=== PATIENT | male | born 1980 | race Two or more races ===

== ENCOUNTER 2019-03-09 08:07 | Day surgery (SDC) | payer OTHER ==
[2019-03-09] VITALS (12 sets, daily range): BP systolic 109–162; BP diastolic 76–107
[~2019-03-09] VITALS: Ht 167.6 cm; Wt 76.2 kg
[~2019-03-09 08:07] MED LIST: ceFAZolin sod 1gm in D5W 55ml IVPB ONE; celeBREX 200mg Cap **SURGERY PATIENTS ONLY ORAL ONE; oxyCONTIN 20mg tab ORAL ONE
[2019-03-09] MEDS ORDERED: oxyCONTIN 20mg tab ORAL ONE (10:11)
[2019-03-09] MEDS ORDERED: celeBREX 200mg Cap **SURGERY PATIENTS ONLY ORAL ONE (10:11)
[2019-03-09] MEDS ORDERED: fentaNYL 100 mcg/2 mL IV ONE (11:19)
[2019-03-09] MEDS ORDERED: Propofol 200mg/20ml IV ONE (11:20)
[2019-03-09] MEDS ORDERED: Lidocaine 1% MPF 10mg/ml 5ml ONE ×2 (11:20→11:31)
[2019-03-09] MEDS ORDERED: Midazolam 2mg/2ml Inj ONE (11:20)
[2019-03-09] MEDS ORDERED: Ketorolac 30mg Inj ONE ×2 (11:20→12:12)
[2019-03-09] MEDS ORDERED: Ropivacaine 5mg/ml Vial 30ml INJ ONE (11:32)
--- NOTE | 2019-03-09 11:52 | Operative Note - PDOC ---
Operative Note Operative Note Pre-op Diagnosis: right shoulder labral tear, impingement Procedure: see op report Post-op Diagnosis: same as pre-op plus Operative Findings: consistent w/pre-op dx studies Anesthesia: regional Specimen: none Complications: none Condition: stable Estimated Blood Loss: none Implant(s) used?: Yes Dominic Nolan MD Mar 09, 2019 11:52
--- NOTE | 2019-03-09 11:52 | Pre-Procedure Note/Attestation ---
Pre-Procedure Note/Attestation Complete Prior to Procedure Planned Procedure: right Procedure Narrative: shoulder arthroscopy, possible labral repair Indications for Procedure Pre-Operative Diagnosis: right shoulder labral tear, impingement Attestation I attest that I discussed the nature of the procedure; its benefits; risks and complications; and alternatives (and the risks and benefits of such alternatives ), prior to the procedure, with the patient (or the patient's legal direct marketing representative). I attest that, if there was a reasonable possibility of needing a blood transfusion, the patient (or the patient's legal direct marketing representative) was given the [facility] standardized written summary, pursuant to the Zaheer Hope Blood Safety Act ([place] Health and Safety Code # 1645, as amended). I attest that I re-evaluated the patient just prior to the surgery and that there has been no change in the patient's H&P, except as documented below: Dominic Nolan MD Mar 09, 2019 11:52
[2019-03-09] MEDS ORDERED: Tylenol #3 tab (300mg/30mg) ORAL PRN (12:00)
[2019-03-09] MEDS ORDERED: HYDROmorphone 1mg/ml Carpuject SUBQ PRN (12:00)
[2019-03-09] MEDS ORDERED: HYDROcodone/Acetamin 5/325 tab ORAL PRN (12:00)
[2019-03-09] MEDS ORDERED: Kenalog-40 1ml Vial ONE (12:12)
[2019-03-09] MEDS ORDERED: EPINEPHrine 1mg/1ml Amp ONE (12:13)
[2019-03-09] MEDS ORDERED: LR 1000ml 1,000 ML IVLG SCH (13:06)
--- NOTE | 2019-03-09 13:06 | Anethesia Preoperative Eval ---
Anesthesia Pre-op PMH/ROS General Date of Evaluation: Mar 09, 2019 Time of Evaluation: 13:02 Anesthesiologist: Malika ASA Score: ASA 2 Mallampati Score Class I : Soft palate, uvula, fauces, pillars visible Class II: Soft palate, uvula, fauces visible Class III: Soft palate, base of uvula visible Class IV: Only hard plate visible Mallampati Classification: Class II Surgeon: Ovidio Diagnosis: R shoulder pain Surgical Procedure: R shoulder scope Anesthesia History: none Family History: no anesthesia problems Allergies: Coded Allergies: No Known Allergies (Unverified , 03/09/19) Medications: see eMAR Patient NPO?: Yes Past Medical History Cardiovascular: Denies: HTN, CAD, NE, valve dz, arrhythmia, other Pulmonary: Denies: asthma, COPD, MUKESH, other Gastrointestinal/Genitourinary: Reports: GERD - mild; Denies: CRI, ESRD, other Neurologic/Psychiatric: Denies: dementia, CVA, depression/anxiety, TIA, other Endocrine: Denies: DM, hypothyroidism, steroids, other HEENT: Denies: cataract (L), cataract (R), glaucoma, [place] (L), [place] (R), other Hematology/Immune: Denies: anemia, DVT, bleeding disorder, other Musculoskeletal/Integumentary: Denies: OA, RA, DJD, DDD, edema, other PMH Narrative: as above PSxH Narrative: none Anesthesia Pre-op Phys. Exam Physician Exam Last Vital Signs Date Time Temp Pulse Resp B/P (MAP) Pulse Ox O2 Delivery O2 Flow Rate FiO2 03/09/19 10:05 Room Air 03/09/19 10:00 97.6 59 18 109/76 100 Constitutional: NAD Neurologic: CN 2-12 intact Cardiovascular: RRR, no M/R/G Respiratory: CTA Gastrointestinal: S/NT/ND Airway Exam Mallampati Score: Class II MO: full Neck: flexible ROM: full Teeth: intact Dentures: no upper, no lower Anesthesia Pre-op A/P Labs see chart Studies Pre-op Studies: EKG - NSR Risk Assessment & Plan Assessment: ASA 2 Plan: GA with LMA R brachial plexus block for postop pain control Status Change Before Surgery: No Pre-Antibiotics Drug: Ancef 1gr. Given Within 1 Hr of Incision: Yes Time Given: 13:40 Sundar Daly MD Mar 09, 2019 13:06
[2019-03-09] MEDS ORDERED: DiphenhydrAMINE 50mg/ml Inj IVP PRN (13:15)
[2019-03-09] MEDS ORDERED: Ketorolac 30mg Inj IV PRN (13:15)
[2019-03-09] MEDS ORDERED: Meperidine 50mg/ml Inj(FOR RIGORS ONLY) IV PRN (13:15)
[2019-03-09] MEDS ORDERED: Sodium Chloride 10ml vial INJ ONE (14:15)
[2019-03-09] MEDS ORDERED: ePHEDrine 50mg/ml Inj ONE (14:15)
[2019-03-09] MEDS ORDERED: Atropine Sulfate 0.4mg/ml inj ONE (14:17)
--- NOTE | 2019-03-09 14:52 | Immediate Post-Op Evaluation ---
Immediate Post-Op Evalulation Immediate Post-Op Evalulation Procedure: R shoulder arthroscopy with subacromion decompression Date of Evaluation: Mar 09, 2019 Time of Evaluation: 14:51 IV Fluids: 1000 Blood Products: none Estimated Blood Loss: min Urinary Output: none Blood Pressure Systolic: 136 Blood Pressure Diastolic: 74 Pulse Rate: 86 Respiratory Rate: 20 O2 Sat by Pulse Oximetry: 99 Temperature (Fahrenheit): 97.7 Pain Score (1-10): 1 Nausea: No Vomiting: No Complications none Patient Status: reacts, patent, none Hydration Status: adequate Sundar Daly MD Mar 09, 2019 14:52
--- NOTE | 2019-03-09 18:02 | 48 Hour Post Anesthesia Eval ---
Post Anesthesia Evaluation Procedure: R shoulder arthroscopy with subacromion decompression Date of Evaluation: Mar 09, 2019 Time of Evaluation: 18:01 Blood Pressure Systolic: 124 0: 76 Pulse Rate: 68 Respiratory Rate: 20 Temperature (Fahrenheit): 97.6 O2 Sat by Pulse Oximetry: 98 Airway: patent Nausea: No Vomiting: No Pain Intensity: 2 Hydration Status: adequate Cardiopulmonary Status: stable Mental Status/LOC: patient returned to baseline Follow-up Care/Observations: n/a Post-Anesthesia Complications: none Follow-up care needed: ready to discharge Sundar Daly MD Mar 09, 2019 18:02
[2019-03-09] MEDS ORDERED: D5 1/2NS 1,000 ML IV SCH (19:00)
--- NOTE | 2019-03-09 20:31 | Operative Note - Dictated ---
DATE OF OPERATION: 03/09/2019 PREOPERATIVE DIAGNOSES: 1. Right shoulder posterior labral tear. 2. Impingement syndrome. POSTOPERATIVE DIAGNOSIS: 1. Right shoulder posterior labral tear. 2. Impingement syndrome. PROCEDURE: 1. Right shoulder diagnostic arthroscopy. 2. Right shoulder subacromial decompression bursectomy. SURGEON: Dominic Nolan M.D. ANESTHESIA: Interscalene general. INDICATION FOR PROCEDURE: The patient is a pleasant gentleman who has had progressive right shoulder pain. The patient continued pain despite conservative treatment. He had an MRI, which showed concern for possible posterior labral tear along with apparently . After failing conservative treatment, the patient elected to undergo right diagnostic arthroscopy, possible repair versus debridement of the labrum as well as decompression of the cyst with some decompression bursectomy. Risks, limitations, expectations, and complications of the procedure were discussed in detail. All questions addressed. DESCRIPTION OF PROCEDURE: After informed consent was obtained, the patient was brought to the operating room. The patient was placed under general anesthesia. Right shoulder was prepped and draped in a sterile manner. Time-out was performed. Posterolateral stab incision was then made. Trocar was introduced in the glenohumeral joint. There was no chondral damage. The anterior labrum was intact along with the subscap. The superior labrum was intact. The biceps tendon was intact along with the articular surface of the rotator cuff. Posteriorly, there was some capsular redundancy making visualization somewhat difficult down the posterior labrum. Therefore, a portal was placed through the rotator interval and the camera was then placed through the rotator interval. This allowed direct visualization of the posterior labrum. The posterior labrum had some tearing, but majority of the attachment was in place. There was significant posterior capsular redundancy. The area in the posterior margin was then probed to see if the cyst could be decompressed. At this point, the camera was placed in the subacromial space. There was some fraying of the CA ligament. There was moderate acromial spur. Therefore, acromioplasty was performed from medial to lateral completed posterior to anterior. The bursal side of the rotator cuff was evaluated and was free of any damage. At this point, the camera was removed. Portal sites were closed with 3-0 Monocryl sutures. Steri-Strips and sterile dressing were applied. ESTIMATED BLOOD LOSS: None. COMPLICATIONS: None. SPECIMENS: None. IMPLANTS: None. Dominic Nolan M.D. DR: TAM JOB#: [id number] CC:
== END 2019-03-09 16:35 | disposition home or self-care (01) ==
LOC: SUR 08:07
DX: S43.431A Superior glenoid labrum lesion of right shoulder, initial encounter (principal); M75.41 Impingement syndrome of right shoulder; K21.9 Gastro-esophageal reflux disease without esophagitis; X58.XXXA Exposure to other specified factors, initial encounter; Y92.9 Unspecified place or not applicable; Y99.8 Other external cause status
CPT/HCPCS: 29822; J0171; J0461; J0690; J1885; J2250; J2704; J2795; J3010; J3301; 94003; 94150